=== PATIENT | female | born 1960 | race Caucasian/White ===

== ENCOUNTER 2023-08-11 08:29 | Outpatient (CLI) | payer OTHER, SELFPAY | END 2023-08-11 08:30 | disposition home or self-care (01) | LOC: NFLDREF 08-13 14:05 | PROVIDERS: PCP Physician Assistant Medical; Referring Provider Physician Assistant Medical; Visit Provider Family Medicine | DX: Z00.00 Encounter for general adult medical examination without abnormal findings (principal); E78.5 Hyperlipidemia, unspecified | CPT/HCPCS: 80053; 80061 ==

== ENCOUNTER 2024-08-11 08:00 | Outpatient (CLI) | payer OTHER, SELFPAY | END 2024-08-11 08:01 | disposition home or self-care (01) | LOC: NFLDREF 08-12 11:03 | PROVIDERS: PCP Family Medicine; Referring Provider Family Medicine; Visit Provider Family Medicine | DX: E78.5 Hyperlipidemia, unspecified (principal); Z13.1 Encounter for screening for diabetes mellitus | CPT/HCPCS: 80061; 82947 ==

== ENCOUNTER 2024-10-22 15:17 | Outpatient (CLI) | payer OTHER, SELFPAY ==
--- OUTSIDE RECORDS SUMMARY | 2024-10-22 15:19 | XMS_ITS | Clinical Summary ---
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 08/09/2016 Anxiety disorder, unspecified 08/09/2016 Overview (08/09/2016): OCPD features Endometrial hyperplasia 07/10/2015 Hernia of abdominal wall 09/29/2014 Postmenopausal 09/28/2014 Resolved Problems Problem Noted Date Diagnosed Date Resolved Date Undiagnosed cardiac murmurs 11/30/2006 07/10/2015 Overview (11/30/2006): echo 2004 negative Immunizations Name Administration Dates Next Due Td (Age >=7 Years) 08/23/1998 Td, Preservative Free (age >= 7 Years) 9 Tdap 01/18/2010 Family History Medical History Relation Name Comments Good Health Brother 1 Cancer Father sarcoma Hypertension Father Lymphoma Father Diabetes Maternal Grandmother Heart Disease Maternal Grandmother CHF Diabetes Mother diet controlled Hypertension Mother Psychiatric illness Mother anxiety Stroke Mother Cancer-breast No Family History Cancer-colon No Family History Cancer-ovarian No Family History Cancer-prostate No Family History Relation Name Status Comments Brother 1 Alive x3 Brother 2 Alive Brother 3 Alive Daughter Alive Father Alive Maternal Grandfather Maternal Grandmother Mother Alive Paternal Grandfather Paternal Grandmother Sister Alive Son Alive Social History Tobacco Use Types Packs/Day Years Used Date Smoking Tobacco: Former Cigarettes Q uit: 06/24/1986 Smokeless Tobacco: Never Tobacco Cessation:Counseling Given: Yes Comments:started @ 14 Alcohol Use Standard Drinks/Week Comments Yes 0 (1 standard drink = 0.6 oz pur e alcohol) occasionally PHQ-2 Answer Date Recorded PHQ-2 Score 1 02/08/2019 Sex and Gender Information Value Date Recorded Sex Assigned at Not on file Gender Identity Not on file Sexual Orientation Not on file Obstetrics History Para Term AB IAB SAB Ectopic Multiple Livin g Live Births 2 2 2 Date Outcome GA Total Labor Labor/2nd/3rd Weight Sex Type Anes PTL Lina A1 A5 Name Clin Para Para Last Filed Vital Signs Vital Sign Reading Time Taken Comments Blood Pressure 110/74 04/06/2019 10:56 AM CDT Pulse 72 04/06/2019 10:56 AM CDT Temperature 36.8 C (98.2 F) 04/06/2019 10:56 AM CDT Respiratory Rate 16 01/13/2018 10:38 AM 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 Oxygen Saturation 96% 02/18/2018 3:47 PM CDT Inhaled Oxygen Concentration - - Weight 72.6 kg (160 lb) 03/02/2019 11:52 AM CDT pt reported Height 172 cm (5' 7.72) 03/02/2019 11:52 AM CDT with shoes Body Mass Index 24.53 03/02/2019 11:52 AM CDT Plan of Treatment Health Maintenance Due Date Last Done Comments HIV for age 15-65 1974 Hepatitis C screening for age 18-79 1977 Zoster (shingles) series for age 50+ (1 of 2) 2009 Depression screening for age 12+ 02/09/2020 02/08/2019, 02/18/2018, 08/29/2016, Additional history exists BMI (ht and wt on same day) for age 18+ 03/02/2020 03/02/2019, 04/30/2016 Mammogram for age 45-75 04/15/2020 04/15/20 19, 03/15/2016, 05/08/2012, Additional history exists Colonoscopy through age 75 07/15/2021 07/15/2011, Lipids for age 45-75 04/29/2023 04/29/2018, 04/02/2012, 01/22/2011, Additional history exists Pap test for age 21-65 04/04/2024 , 04/04/2021, 02/18/2018, Additional history exists COVID-19 vaccine series (2023- season) 2024 Influenza for age 50-64 07/25/2024 Tetanus booster 03/02/2029 03/02/2019, 12/26, 08/23/1998 Tdap Completed 01/18/2010 Pneumococcal series for age 6-64 Aged Out No longer eligible based on patient's age to complete this topic Medical Devices Implanted Type Area Evp Sales Device Identifier Shelf Expiration Date Model / Serial / Lot Mesh Ventralex Hernia Patch (S) #[id number] - [id number] Implanted:Qty: 1 on 10/04/2014 by Christiano Rick MD at [facility] N/A: Abdomen D-BARD 06/23/2016 [id number] / / [id number] Procedures Procedure Name Priority Date/Time Associated Diagnosis Comments PUBLIC HEALTH DOCTOR THIN PREP PAP SCREEN IMAGED Routine 04/04/2021 9:15 AM CDT XR MAMMO BILAT SCREEN IMPLANT Routine 04/15/2019 11:27 AM CDT Visit for screening mammogram LIPID PANEL W REFLEX MEASURED LDL Routine 04/29/2018 8:07 AM CDT Lipid screening COLONOSCOPY SCREENING Routine 07/15/2011 Special screening for malignant neoplasms, colon from Last 3 Months or Most Recently Relevant to Health Maintenance Results * PUBLIC HEALTH DOCTOR THIN PREP PAP SCREEN IMAGED (04/04/2021 9:15 AM CDT) Case Report Gynecologic Cytology Report Case: [id number] Authorizing Provider: Jordana Rodrigez PA-C Collected: 04/04/2021 0915 Ordering Location: [facility] Received: 04/05/2021 1036 First Screen: Polly Gomez Specimen: PUBLIC HEALTH DOCTOR ThinPrep Vial Screening, Cervical/Vaginal 04/16/2021 1:[address] [facility] INTERPRETATION/ RESULT NEGATIVE FOR INTRAEPITHELIAL LESION OR MALIGNANCY (NIL) (none) 04/16/2021 1:13 PM CDT [facility] IMEN ADEQUACY Satisfactory for evaluation Endocervical component present 04/16/2021 1:13 PM CDT [facility] HPV REQUEST HPV and PAP 04/16/2021 1:13 PM CDT [facility] Last Pap Date 04/16/2021 1:13 PM CDT [facility] Comment:unknown Menstrual Status Perimenopausal 04/16/2021 1:13 PM CDT [facility] Additional Information 04/16/2021 1:13 PM CDT [facility] Comment: Interpreted at [facility] - [address], [place] [address] Automated Review Successful 04/16/2021 1:13 PM CDT [facility] Comment:Specimen processed s uccessfully by automated employee training specialist device, ThinPrep Imaging System, [employer] ANCILLARY TESTING PUBLIC HEALTH DOCTOR HPV Ordered, Please see separate report 04/16/2021 1:13 PM CDT [facility] Note The pap test is a screening technique, not a diagnostic procedure. It is used primarily to screen for squamous cancers and precursor lesions. Published studies have shown that it is subject to both false negative and false positive results. The pap test should not be used as the sole means to diagnose or exclude pre-malignant and malignant lesions. 04/16/2021 1:13 PM CDT [facility] Other (Cervical/Vagina l) 04/04/2021 9:15 AM CDT 04/05/2021 10:36 AM CDT Jordana Rodrigez PA-C PATHOLOG[facility] [address] [place] [address], [place] * XR MAMMO BILAT SCREEN IMPLANT (04/15/2019 11:27 AM CDT) Anatomical Region Laterality Modality BREASTS, Breast Left, Breast Right Bilateral Mammography Impressions 04/15/2019 12:19 PM CDT There is no radiographic evidence for malignancy. Recommend annual mammograms. A lay language report of this examination will be provided to the patient. MAMMOGRAM ASSESSMENT: ACR 2 Benign Narrative 04/15/2019 12:19 PM CDT XR MAMMO BILAT SCREEN IMPLANT [[id number]] CLINICAL HISTORY: This is an asymptomatic 58 y.o. patient. INDICATION FOR EXAM: Mammogram Screening. TECHNIQUE: CC & MLO views were obtained. This digital study was evaluated with the assistance of Computer-Aided Detection. COMPARISON FILMS: Yes 03/15/16 [facility] 05/08/12 [facility] FINDINGS: Mammographically, the breast tissue has scattered fibroglandular densities. No suspicious masses or microcalcifications. Implant(s) within both breasts, Benign appearing calcifications within both breasts and Benign appearing asymmetry within right breast. Bilateral breast biopsy markers. Patti Puentes MD MAMMO * LIPID PANEL W REFLEX MEASURED LDL (04/29/2018 8:07 AM CDT) CHOLESTEROL,TOTAL 165 100 - 199 mg/dL 04/29/2018 3:38 PM CDT [facility] TRIGLYCERIDES 47 <150 mg/dL 04/29/2018 3:38 PM CDT [facility] HDL CHOLESTEROL 72 >40 mg/dL 8 3:38 PM CDT [facility] NON-HDL CHOLESTEROL 93 <145 mg/dl 04/29/2018 3:38 PM CDT [facility] CHOL/HDL RATIO 2.29 <4.50 04/29/2018 3:38 PM CDT [facility] LDL CHOLESTEROL 84 <=130 mg/dL 04/29/2018 3:38 PM CDT [facility] PROVIDER ORDERED STATUS RANDOM 04/29/2018 3:38 PM CDT [facility] Blood BLOOD SPECIMEN / Unknown Venipuncture / Unknown 04/29/2018 8:07 AM CDT 04/29/2018 8:07 AM CDT Chuyita Wallace NP CHEMISTRY [facility] [address] [place] [address], * COLONOSCOPY SCREENING (07/15/2011) Linda Tanner NP GI PROCEDURE ORD from Last 3 Months or Most Recently Relevant to Health Maintenance Advance Directives * Full Code (Latest Code Status on File) Date Activated Date Inactivated Comments 10/04/2014 12:10 PM 10/04/2014 5:17 PM * Full Code Date Activated Date Inactivated Comments 10/03/2014 6:21 PM 10/04/2014 12:10 PM Care Teams Clerk General Relationship Specialty Start [place] [address] [place] [address] PCP - General Family Practice 02/08/19
--- NOTE | 2024-10-22 15:20 | CRLHL7_ITS ---
For Patients: As a result of the Century Cures Act, medical imaging exams and procedure reports are released immediately into your electronic medical record. You may view this report before your referring provider. If you have questions, please contact your health care provider. BILATERAL SCREENING MAMMOGRAM WITH COMPUTER-AIDED DETECTION AND TOMOSYNTHESIS TECHNIQUE: CC, MLO and Implant displaced views were obtained. These mammographic images have been obtained using full-field digital technique. These mammographic images were interpreted with the benefit of computer-aided detection. Breast Tomosynthesis was used in this interpretation. COMPARISON FILM: 04/11/21, 04/15/19, 03/15/16. FINDINGS: There are scattered areas of fibroglandular density. IMPRESSION: There is no radiographic evidence for malignancy. ASSESSMENT: BI-RADS Category 2: Benign RECOMMENDATION: Routine screening mammogram in 1 year. A lay language report of this examination will be provided to the patient. Julio Ellis M.D. Diagnostic Radiologist [email or web address] SP/Dictated by: Julio Ellis MD @ 10/27/2024 11:15:00 AM (Electronically Signed)
== END 2024-10-22 15:18 | disposition home or self-care (01) ==
LOC: MAMMO 15:18
PROVIDERS: PCP Family Medicine; Visit Provider Family Medicine
DX: Z12.31 Encounter for screening mammogram for malignant neoplasm of breast (principal)
CPT/HCPCS: 77063; 77067

== ENCOUNTER 2025-08-18 07:35 | Outpatient (CLI) | payer MEDICARE, SELFPAY | END 2025-08-18 07:36 | disposition home or self-care (01) | LOC: NFLDREF 08-22 03:25 | PROVIDERS: PCP Family Medicine; Referring Provider Family Medicine; Visit Provider Family Medicine | DX: E78.5 Hyperlipidemia, unspecified (principal) | CPT/HCPCS: 80061; 82947 ==

== ENCOUNTER 2025-09-01 13:54 | Outpatient (CLI) | payer MEDICARE, SELFPAY ==
--- NOTE | 2025-09-01 14:00 | CRLHL7_ITS ---
For Patients: As a result of the Century Cures Act, medical imaging exams and procedure reports are released immediately into your electronic medical record. You may view this report before your referring provider. If you have questions, please contact your health care provider. XR DXA Bone Mineral Density (BMD) Reason for exam: Asymptomatic menopausal state. Current height (inches): 67.0 Weight (lbs.): 165.0 Menopause age: 49 Ethnicity: White 1. Have you had a previous hip or vertebral fracture? No. 2. Have you had any fractures during your adult life which did not result from significant trauma (e.g., auto accident)? No. 3. Did either of your parents have a hip fracture? No. 4. Do you smoke? No. 5. Have you ever taken Glucocorticoids? No. 6. Do you have rheumatoid arthritis? No. 7. Do you have secondary osteoporosis? No. 8. Do you drink 3 or more alcoholic drinks per day? No. 9. Are you being treated for osteoporosis? No. 10. Have you ever taken any of the following medications: Actonel, Evista, Fosamax, Miacalcin, Reclast, Boniva, Forteo, HRT (i.e., estrogen/hormone therapy), Protelos, Prolia, Vitamin D, Calcium, other ??? please specify. ANSWER: No. 11. Do you have any of the following medical conditions: Anorexia or bulimia, asthma or emphysema, end stage renal disease, hyperparathyroidism, any seizure disorders, cancer, inflammatory bowel diseases, hysterectomy, other ??? please specify. ANSWER: No. 12. What was your maximum height (inches)? 67. 13. Do you perform weightbearing exercise regularly? No. 14. Do you regularly consume dairy products? No. 15. Do you drink caffeinated beverages? Yes. 16. At what age did your period start? 12. 17. Are you premenopausal? No. 18. How many full-term pregnancies have you had? 2. 19. Have you ever missed your period for more than 6 months in a row (not including or menopause)? No. TECHNIQUE: Bone mineral density study was performed using the [employer]. FINDINGS: The results of the study expressed as bone mineral density (BMD) are as follows: Lumbar Spine L1 to L4: BMD: 0.952 g/cm2. T-score: -0.9. Z-score: 0.9. Neck Left: BMD: 0.724 g/cm2. T-score: -1.1. Z-score: 0.4. Right: BMD: 0.720 g/cm2. T-score: -1.2. Z-score: 0.4. Total Left: BMD: 0.842 g/cm2. T-score: -0.8. Z-score: 0.4. Right: BMD: 0.862 g/cm2. T-score: -0.7. Z-score: 0.6. IMPRESSION: Osteopenia. FRAX 10-year Fracture Risk Major Osteoporotic Fracture: <0.1% Hip Fracture: <0.1% Reported Risk Factors: [place] () Neck BMD = 0.720, BMI = 25.8. JULIO CARCAMO M.D. Diagnostic Radiologist [email or web address] Transcribed: 4:[address]/Dictated by: Julio Carcamo MD @ 09/01/2025 2:29:00 PM (Electronically Signed)
== END 2025-09-01 13:55 | disposition home or self-care (01) ==
LOC: RAD 13:55
PROVIDERS: PCP Family Medicine; Visit Provider Family Medicine
DX: Z78.0 Asymptomatic menopausal state (principal); M85.89 Other specified disorders of bone density and structure, multiple sites
CPT/HCPCS: 77080

== ENCOUNTER 2025-10-05 11:15 | Outpatient (RCR) | payer MEDICARE, SELFPAY | END 2025-10-14 11:24 | disposition home or self-care (01) | PROVIDERS: PCP Family Medicine; Visit Provider Family Medicine | DX: S76.312D Strain of muscle, fascia and tendon of the posterior muscle group at thigh level, left thigh, subsequent encounter (principal); Z51.89 Encounter for other specified aftercare | CPT/HCPCS: 97110; 97140; 97161; 97535 ==